=== PATIENT | male | born 1990 | race Two or more races ===

== ENCOUNTER 2017-11-14 10:41 | Emergency (ER) | payer SELFPAY ==
[~2017-11-14] VITALS: Ht 177.8 cm; Wt 66.7 kg
[2017-11-14] MEDS ORDERED: KETOROLAC TROMETHAMINE 15 MG/ML VIAL ONE (11:10)
[2017-11-14] MEDS ORDERED: DICYCLOMINE HCL INJ 20 MG/2 ML AMPUL IM ONE ×2 (11:10→11:30)
[2017-11-14] MEDS ORDERED: ONDANSETRON HCL/PF 4 MG/2 ML VIAL ONE (11:10)
--- NOTE | 2017-11-14 11:19 | NUR ---
ABD PAIN X 2 DAYS, N/V/D SINCE LAST NIGHT. AAOX3, VSS. PT SEEN & EVAL'D BY DR. HYLTON. MEDICATED PER ERMD ORDER, PT LEO WELL. WILL CONT TO MONITOR.
[2017-11-14] MEDS ORDERED: ONDANSETRON HCL/PF 4 MG/2 ML VIAL IVP ONE (11:30)
[2017-11-14] MEDS ORDERED: IV NS 0.9% 1,000 ML BAG IV ONE (11:30)
[2017-11-14] MEDS ORDERED: KETOROLAC TROMETHAMINE INJ 30 MG/ML VIAL IV ONE (11:30)
[2017-11-14 12:17] VITALS: BP 124/78
--- NOTE | 2017-11-14 12:18 | NUR ---
Patient discharged to home in stable condition. Written and verbal after care instructions given. Patient verbalizes understanding of instruction.
== END 2017-11-14 12:18 | disposition home or self-care (01) ==
LOC: ER 10:44
DX: A08.4 Viral intestinal infection, unspecified (principal)
CPT/HCPCS: A4606; J0500; J1885; J2405; J7030; Z7610

== ENCOUNTER 2024-05-06 10:07 | Emergency (ER) | payer MEDICAID, OTHER ==
[~2024-05-06] VITALS: Ht 172.7 cm; Wt 70.3 kg
[2024-05-06] MEDS ORDERED: IBUP-1490 PO (10:48)
[2024-05-06 11:15] VITALS: BP 128/77; TEMP 98.6; O2SAT 97
== END 2024-05-06 11:16 | disposition home or self-care (01) ==
LOC: ER 10:10
DX: S62.606A Fracture of unspecified phalanx of right little finger, initial encounter for closed fracture (principal); F12.90 Cannabis use, unspecified, uncomplicated; W22.8XXA Striking against or struck by other objects, initial encounter; Y93.89 Activity, other specified; Y92.89 Other specified places as the place of occurrence of the external cause; Y99.8 Other external cause status
CPT/HCPCS: 73130-TC

== ENCOUNTER 2024-05-11 17:52 | Emergency (ER) | payer OTHER ==
[~2024-05-11] VITALS: Ht 175.3 cm; Wt 70.3 kg
[~2024-05-11 17:52] MED LIST: IBUP-1490 PO
[2024-05-11 18:21] LABS: BASOPHILS # (AUTO) 0.1 K/uL (0.0-0.2); BASOPHILS % (AUTO) 0.7 % (0.0-2.0); EOSINOPHILS # (AUTO) 0.4 K/uL (0.0-0.7); EOSINOPHILS % (AUTO) 4.3 % (0.0-6.0); HEMATOCRIT 44 % (39-51); HEMOGLOBIN 15.3 g/dL (13.5-17.5); LYMPHOCYTES # (AUTO) 3.2 K/uL (0.8-4.8); LYMPHOCYTES % (AUTO) 37.2 % (20.0-44.0); MEAN CORPUSCULAR HEMOGLOBIN 31 PG (26.0-33.0); MEAN CORPUSCULAR HGB CONC 35 g/dl (31.0-36.0); MEAN CORPUSCULAR VOLUME 87 fL (80-96); MONOCYTES # (AUTO) 0.8 K/uL (0.1-1.30); MONOCYTES % (AUTO) 9.6 % (2.0-12.0); NEUTROPHILS # (AUTO) 4.1 K/uL (1.8-8.9); NEUTROPHILS % (AUTO) 48.2 % (43.0-81.0); PLATELET COUNT (AUTO) 277 K/uL (150-450); RED BLOOD CELL COUNT(AUTO) 5.03 MIL/uL (4.5-6.0); RED CELL DISTRIBUTION WIDTH 13.7 % (11.5-15.0); WHITE BLOOD COUNT (AUTO) 8.6 K/uL (4.3-11.0)
[2024-05-11 18:29] LABS: CALCIUM, SERUM 8.8 mg/dL (8.5-10.1); CARBON DIOXIDE 29 mmol/L (21-32); CHLORIDE 102 mmol/L (98-107); GLUCOSE 107 mg/dL (74-106); POTASSIUM 3.5 mmol/L (3.5-5.1); SODIUM SERUM 141 mmol/L (136-145); UREA NITROGEN, BLOOD 12 mg/dL (7-18)
[2024-05-11] MEDS: IV NS 0.9% 1,000 ML BAG IV ONE (18:35)
[2024-05-11 19:22] VITALS: BP 115/77; TEMP 97.9; O2SAT 100
== END 2024-05-11 19:22 | disposition home or self-care (01) ==
LOC: ER 17:54
DX: R55 Syncope and collapse (principal); F12.90 Cannabis use, unspecified, uncomplicated
CPT/HCPCS: 99285; 96360; 70450; 71045; 93005; 85025; 80048; 36415; 84484; 83880; 82962; J7030